=== PATIENT | female | born 1940 | race Caucasian/White ===

== ENCOUNTER 2017-11-11 14:06 | Emergency (ER) | payer OTHER ==
[2017-11-11 14:13] VITALS: TEMP 97.6; BMI 25.4
--- NOTE | 2017-11-11 15:23 | PDOC ---
History of Present Illness - General Chief Complaint: Ear Problem Stated Complaint: EAR PAIN Time Seen by Provider: 11/11/17 14:09 History Source: Patient, Spouse Exam Limitations: No Limitations - History of Present Illness Initial Comments: 11/11/17 15:40 77 year old female with PMH HTN, TIA, GERD presented to urgent care for left ear pain, was transferred to main ED for fluid behind TM. Pt states that she was diagnosed with left ear infection 12/[address] Vegas, was prescribed Amoxicillin, has taken all doses, but today in roman catholic she felt the music was louder in her left ear and her ear began to hurt again. She denies fever, chills , nausea, vomiting, diarrhea, abdominal pain, chest pain, tinnitus, numbness, tingling, weakness. She states she feels epigastric burning consistent with her GERD, and would like something for the burning. Allergies - NKDA PCP - [facility] Past History - Past Medical History Allergies/Adverse Reactions: Allergies Allergy/AdvReac Type Severity Reaction Status Date / Time No Known Allergies Allergy Verified 11/11/17 14:13 Home Medications: Ambulatory Orders Cefuroxime Axetil [Ceftin -] 500 mg PO Q12H #20 tablet 11/11/17 Ranitidine [Zantac -] 150 mg PO DAILY #14 tablet 11/11/17 CVA: No COPD: No CHF: No HTN: Yes - Suicide/Smoking/Psychosocial Hx Smoking History: Never smoked Have you smoked in the past 12 months: No Information on smoking cessation initiated: No Hx Alcohol Use: No Drug/Substance Use Hx: No Substance Use Type: None Review of Systems - Review of Systems Able to Perform ROS?: Yes Comments:: 11/11/17 15:43 General: denies fever, chills, night sweats, generalized weakness. HEENT: admits to left ear pain, noise sensitivity to left ear. denies sore throat, rhinorrhea. Heart: denies chest pain, palpitations, syncope, lower extremity swelling, diaphoresis. Respiratory: denies shortness of breath, cough, sputum production, hemoptysis. Abdomen: admits to epigastric burning. denies abdominal pain, nausea, vomiting, diarrhea, constipation, blood in stool. : denies dysuria, increased urinary frequency, hematuria, urinary incontinence , flank pain. Back: denies back pain. Musculoskeletal: denies joint pain, muscle pain, joint swelling. Neurological: denies headache, dizziness, numbness, tingling, weakness. Skin: denies rash, laceration, abrasion. *Physical Exam - Vital Signs Last Vital Signs Temp Pulse Resp BP Pulse Ox 97.6 F 67 17 129/72 100 11/11/17 14:10 11/11/17 14:10 11/11/17 14:10 11/11/17 14:10 11/11/17 14:10 - Physical Exam Comments: 11/11/17 15:44 Constitutional: Well-nourished, Well-developed, appearing stated age. HEENT: head is normocephalic, atraumatic. EOMI. PERRLA. external auditory canals patent bilaterally, no erythema bilaterally. no pain with pulling of pinna bilaterally. no mastoid tenderness. Purulent fluid noted behind the left TM. right TM sclerotic, but no fluid, no bulging, no erythema. no posterior pharyngeal erythema. no tonsillar swelling bilaterally. no tonsillar exudates bilaterally. Neck: supple. Full ROM. Heart: regular rhythm. no murmurs, rubs or gallops. Lungs: clear to auscultation bilaterally. no crackles, rhonchi or wheezing. no stridor. Abdomen: soft, nontender. normal bowel sounds. no rebound, guarding, masses. Extremities: Peripheral pulses intact. No lower extremity edema. Neurological: CN 2-12 grossly intact. Moves all four extremities. Psych: awake, alert, oriented x3. Follows commands. Answers questions appropriately. Medical Decision Making - Medical Decision Making 11/11/17 15:47 77 year old female with PMH HTN, TIA, GERD recently prescribed Amoxicillin () for left middle ear infection, purulent fluid behind left TM on examination. Pt failed out-patient antibiotics. PCP [facility]. Initial Vital Signs Temp Pulse Resp BP Pulse Ox 97.6 F 67 17 129/72 100 11/11/17 14:10 11/11/17 14:10 11/11/17 14:10 11/11/17 14:10 11/11/17 14:10 Afebrile. No tachycardia. No hypotension. No hypoxia on room air. Concern for failed out-patient antibiotics. - Augmentin ordered. Pt complains of epigastric burning consistent with her GERD symptoms, nontender/ soft abdomen. - Pepcid ordered 11/11/17 16:10 Dr. Hamilton spoke with Dr. Vegas about the patient, he requests the patient to be placed on Ceftin. Pt will be discharged with follow up instructions, referral for GI and ENT, prescription for Zantac and Ceftin, as well as strict return precautions. The patient and her stated they understood the plan for care and agreed to be discharged. *DC/Admit/Observation/Transfer Diagnosis at time of Disposition: Otitis media - Discharge Dispostion Disposition: HOME Condition at time of disposition: Stable Decision to Admit order: No - Prescriptions Prescriptions: Cefuroxime Axetil [Ceftin -] 500 mg PO Q12H #20 tablet Ranitidine [Zantac -] 150 mg PO DAILY #14 tablet - Referrals Referrals: Tianna Vegas MD [Primary Care Provider] - Nilson Connolly MD [Staff Physician] - Carmine Oconnell MD [Staff Physician] - - Patient Instructions Printed Discharge Instructions: Middle Ear Infection Additional Instructions: DOCTOR'S INSTRUCTIONS: You were seen today for left ear pain and increased sensitivity to hearing. You likely have a middle ear infection that was non-responsive to the first type of antibiotic. I gave you the first dose of a stronger antibiotic here in the Emergency Department. I have written a prescription for an antibiotic and sent it to your pharmacy. -Pick it up today and take as directed on the bottle. -This antibiotic can cause diarrhea, please take a pro-biotic every day over the counter to help with this. Drink lots of clear fluids, like water or gatorade, to stay hydrated. Take tylenol over the counter for pain. Take as directed on the package. I have written you a 2 week prescription for Zantac, to aid with your acid reflux. Pick it up today and take as directed on the bottle. Follow up with your primary care doctor within 5 days, call their office tomorrow and make an appointment for this coming week. Your care is not complete until you follow up. Tell Dr. eVgas about your acid reflux symptoms. I have provided you with a referral for an [id number] Doctor, Dr. Connolly. Follow up with him within 3 days. Call his office tomorrow and make an appointment for this week. Tell him you were seen in the Emergency Department. Your care is not complete until you follow up. I have provided you with a referral for a in store representative, Dr. Oconnell. Follow up with him within 5 days. Call his office tomorrow and make an appointment for this week. Tell him you were seen in the Emergency Department. Your care is not complete until you follow up. Return to the Emergency Department for fever, chills, body ache, chest pain, shortness of breath, vomiting, increasing pain, discharge from ear, pain behind your ear, or any other new, worsening or concerning symptoms. - Post Discharge Activity
[2017-11-11] MEDS ORDERED: AMOX TR/POT CLAV 875MG/125MG TABLETS (FP) PO ONE (15:49)
[2017-11-11] MEDS ORDERED: AMOX TR/POT CLAV 875MG/125MG TABLETS (FP) ONE (15:54)
--- NOTE | 2017-11-11 16:10 | PDOC ---
Attending Attestation - Resident Resident Name: Lyssa Tidwell - ED Attending Attestation I have performed the following: I have examined & evaluated the patient, The case was reviewed & discussed with the resident, I agree w/resident's findings & plan, Exceptions are as noted - Medical Decision Making 11/11/17 16:08 a/p: 77yo female with L ear pain -currently on amox 500mg po bid - seen by dr. dubois -ear fullness today -no mastoid ttp -no fevers -no lymph nodes -pt is nontoxic in appearance -no rash within the ear or vesicles within the ear -neuro intact -will change abx and recommend ent eval 11/11/17 16:09 pt also c/o acid reflux - requesting medication refill for acid reflux meds discussed the case with Dr. Dubois - pts pmd -will change to ceftin 500mg po bid -will add zantac -will give Dr. Connolly for follow up -stable for d/c to home <Johanna Hamilton - Last Filed: 11/11/17 16:08> - HPI HPI: 11/11/17 16:17 The patient is a 77 year old female with a significant past medical history of HTN, TIA, and GERD who presents to the ER with left ear pain since 12/03. Dr. Dubios prescribed the patient amoxicillin for a left ear infection, which she has taken regularly and noticed mild improvement until today. Patient then noticed fullness to the left ear earlier today prompting her to come to the ER. Patient also admits to epigastric burning, which feels like her GERD. The patient denies chest pain, shortness of breath, headache, and dizziness. Denies fever, chills, nausea, vomit, diarrhea, and constipation. Denies dysuria, frequency, urgency, and hematuria. Allergies: NKA Past surgical history: None reported. Social history: No reported alcohol, drug, or cigarette use. PCP: Dr. Dubois - Physicial Exam PE: 11/11/17 16:16 ADULT PHYSICAL EXAM Constitutional: Awake, alert, oriented. No acute distress. Head: Normocephalic. Atraumatic Eyes: PERRL. EOMI. Conjunctivae are not pale. ENT: Mucous membranes are moist and intact. Posterior pharynx without exudates or erythema. Uvula midline. (+) Some fluid behind the left ear. No sinus tenderness. Neck: Supple. Full ROM. No lymphadenopathy. Cardiovascular: Regular rate. Regular rhythm. S1, S2 regular. Distal pulses are 2+ and symmetric. Pulmonary/Chest: No evidence of respiratory distress. Clear to auscultation bilaterally No wheezing, rales or rhonchi. Abdominal: Soft and non-distended. There is no tenderness. No rebound, guarding or rigidity. No organomegaly. No palpable masses. Good bowel sounds. Back: No CVA tenderness. Musculoskeletal: No edema. No cyanosis. No clubbing. Full range of motion in all extremities. Nocalf tenderness. Radial/pedal pulses are intact and 2+ bilaterally Skin: Skin is warm and dry. No petechiae. No purpura. Neurological: Alert and oriented to person, place, and time. Cranial nerves II -XII are grossly intact. Normal speech. Strength is grossly symmetric. No sensory deficits. Psychiatric: Good eye contact. Normal interaction, affect and behavior. <Yvonne Dobbins - Last Filed: 11/11/17 16:21>
[2017-11-11 16:43] VITALS: BP 165/82; PULSE 64
== END 2017-11-11 16:20 | disposition home or self-care (01) ==
LOC: JER 14:06
DX: H66.92 Otitis media, unspecified, left ear (principal); I10 Essential (primary) hypertension; K21.9 Gastro-esophageal reflux disease without esophagitis; Z86.73 Personal history of transient ischemic attack (TIA), and cerebral infarction without residual deficits
CPT/HCPCS: 99281-25

== ENCOUNTER 2018-01-19 18:27 | Emergency (ER) | payer OTHER ==
[2018-01-19 18:38] VITALS: BP 173/71; PULSE 65; TEMP 98; BMI 25.7
--- NOTE | 2018-01-19 18:51 | PDOC ---
History of Present Illness - General Chief Complaint: Eye Problem Stated Complaint: RED EYE Time Seen by Provider: 01/19/18 18:42 History Source: Patient Exam Limitations: No Limitations - History of Present Illness Initial Comments: 01/19/18 19:03 Patient is a 77-year-old female who presents to the emergency department today for right eye redness. Patient states that she noticed approximately one week ago the inside of her right eye became very red. She denies any pain to the eye or itching. Also denies pressure of the right eye. Denies fevers, chills, cold- like symptoms, cough. Patient states that she been taking medication for her seasonal ALLERGIES. Past History - Travel Traveled outside of the country in the last 30 days: No Close contact w/someone who was outside of country & ill: No - Past Medical History Allergies/Adverse Reactions: Allergies Allergy/AdvReac Type Severity Reaction Status Date / Time No Known Allergies Allergy Verified 01/19/18 18:33 Home Medications: Ambulatory Orders Amlodipine Besylate 5 mg PO ASDIR 01/19/18 CVA: No COPD: No CHF: No HTN: Yes - Suicide/Smoking/Psychosocial Hx Smoking History: Never smoked Have you smoked in the past 12 months: No Hx Alcohol Use: No Drug/Substance Use Hx: No Substance Use Type: None Review of Systems - Review of Systems Able to Perform ROS?: Yes Comments:: 01/19/18 19:01 CONSTITUTIONAL: Absent: fever, chills, diaphoresis, generalized weakness, malaise, loss of appetite HEENT: Present: eye redness Absent: rhinorrhea, nasal congestion, throat pain, throat swelling, difficulty swallowing, mouth swelling, ear pain, eye pain, visual Changes SKIN: Absent: rash, itching, pallor NEUROLOGIC: Absent: headache, focal weakness or paresthesias, dizziness, unsteady gait, seizure, mental status changes, bladder or bowel incontinence PSYCHIATRIC: Absent: anxiety, depression, suicidal or homicidal ideation, hallucinations. Is the patient limited Kazakh proficient: No *Physical Exam - Vital Signs Last Vital Signs Temp Pulse Resp BP Pulse Ox 98 F 65 16 173/71 H 95 01/19/18 18:33 12 18:33 01/19/18 18:33 01/19/18 18:33 01/19/18 18:33 - Physical Exam Comments: 01/19/18 19:01 GENERAL: The patient is awake, alert, and fully oriented, in no acute distress. HEAD: Normal with no signs of trauma. EYES: Pupils equal, round and reactive to light, extraocular movements intact, sclera anicteric, conjunctiva clear in the L eye. Conjunctiva of the R eye is red medially and does not affect the iris. EXTREMITIES: Normal range of motion, no edema. NEUROLOGICAL: Normal speech, normal gait. PSYCH: Normal mood, normal affect. SKIN: Warm, Dry, normal turgor, no rashes or lesions noted. Moderate Sedation - Procedure Monitoring Vital Signs: Procedure Monitoring Vital Signs Temperature 98 F 01/19/18 18:33 Pulse Rate 65 01/19/18 18:33 Respiratory Rate 16 01/19/18 18:33 Blood Pressure 173/71 H 01/19/18 18:33 O2 Sat by Pulse Oximetry (%) 95 01/19/18 18:33 Medical Decision Making - Medical Decision Making 01/19/18 18:51 Pt is a 77 y/o F who presents for R eye redness for one week Pt denies pain or itching or pressure Visual acuity: OD20/50, OS20/40 Erythema to the medial aspect of the R conjunctiva sparing the iris Most likely a subconjunctival hemorrhage DC home with optho followup I discussed the physical exam findings, ancillary test results and final diagnoses with the patient. I answered all of the patient's questions. The patient was satisfied with the care received and felt comfortable with the discharge plan and treatment plan. The Patient agrees to follow up with the primary care physician/specialist within 24-72 hours. Return precautions were given. *DC/Admit/Observation/Transfer Diagnosis at time of Disposition: Subconjunctival hemorrhage Qualifiers: Laterality: right Qualified Code(s): H11.31 - Conjunctival hemorrhage, right eye - Discharge Dispostion Disposition: HOME Condition at time of disposition: Stable Decision to Admit order: No - Referrals Referrals: Tianna Vegas MD [Primary Care Provider] - Gray Edmonds MD [Staff Physician] - - Patient Instructions Printed Discharge Instructions: DI for Subconjunctival Hemorrhage Additional Instructions: You have a subconjunctival hemorrhage causing the redness to your right eye. This happens when a small blood vessel in the eye breaks and bleeds for a small amount time. This will get better on its own without treatment. Please follow-up with your sanitation truck cleaner this week. Return to the emergency department for pain, visual changes, lightheadedness dizziness or give any changes in your symptoms. - Post Discharge Activity
== END 2018-01-19 19:24 | disposition home or self-care (01) ==
LOC: JERFT 18:27
DX: H11.31 Conjunctival hemorrhage, right eye (principal); I10 Essential (primary) hypertension
CPT/HCPCS: 99281-25

== ENCOUNTER 2019-01-04 18:57 | Emergency (ER) | payer OTHER ==
[2019-01-04 19:10] VITALS: TEMP 97.6; BMI 26.0
--- NOTE | 2019-01-04 20:31 | PDOC ---
History of Present Illness - General Chief Complaint: Lightheaded Stated Complaint: DIZZINESS Time Seen by Provider: 01/04/19 19:44 - History of Present Illness Initial Comments: 01/04/19 20:26 Ms. Neumann is a 78 y/o F with a pmhx HTN, TIA, and GERD who presents with dizziness since Sunday. The pt reprots when she lays flat in bed she feels dizzy and like the room is spinning around her. She states it lasts for a few seconds and then goes away. She still feels dizzy even if she closes her eyes. She also endorses a "head pressure" and "ear pressure" in her L ear. She does not endorse any nausea, vomiting, abdominal pain, diarrhea, constipation, fevers , chills, cp or SOB. The patient states she had an ear infection 1 year ago and is concerned her current sx might be a recurrence of her ear infection. Past History - Past Medical History Allergies/Adverse Reactions: Allergies Allergy/AdvReac Type Severity Reaction Status Date / Time No Known Allergies Allergy Verified 01/04/19 19:10 Home Medications: Ambulatory Orders Amlodipine Besylate 5 mg PO ASDIR 01/19/18 CVA: No COPD: No CHF: No HTN: Yes - Psycho Social/Smoking Cessation Hx Smoking History: Never smoked Have you smoked in the past 12 months: No Hx Alcohol Use: No Drug/Substance Use Hx: No Substance Use Type: None Review of Systems - Review of Systems Able to Perform ROS?: Yes Is the patient limited Vincentian proficient: No Constitutional: No: Chills, Fever, Loss of Appetite HEENTM: No: Symptoms Reported, Eye Pain, Recent change in vision, Throat Pain Respiratory: No: Cough, Orthopnea, Shortness of Breath Cardiac (ROS): No: Chest Pain, Edema, Palpitations, Syncope ABD/GI: No: Constipated, Diarrhea, Nausea, Vomiting : No: Burning, Dysuria, Frequency Musculoskeletal: No: Back Pain Integumentary: No: Bruising, Erythema Neurological: Yes: Dizziness, Other (head pressure). No: Headache Endocrine: No: Flushing, Intolerance to Cold, Intolerance to Heat All Other Systems: Reviewed and Negative *Physical Exam - Vital Signs Last Vital Signs Temp Pulse Resp BP Pulse Ox 97.6 F 65 18 186/63 H 98 01/04/19 19:07 11/30/19 19:45 01/04/19 19:45 01/04/19 19:45 01/04/19 19:45 - Physical Exam General Appearance: Yes: Nourished, Appropriately Dressed. No: Apparent Distress HEENT: positive: EOMI, GIBRAN, Normal Voice, TMs Normal, Pharynx Normal, Tonsillar Exudate, Other (horizontal nystagmus) Neck: positive: Trachea midline, Supple. negative: Tender Respiratory/Chest: positive: Lungs Clear, Normal Breath Sounds. negative: Respiratory Distress, Accessory Muscle Use Cardiovascular: positive: Regular Rhythm, Regular Rate, S1, S2 Gastrointestinal/Abdominal: positive: Normal Bowel Sounds, Flat. negative: Tender Musculoskeletal: positive: Normal Inspection. negative: CVA Tenderness, Vertebral Tenderness Extremity: positive: Normal Capillary Refill, Normal Inspection, Normal Range of Motion. negative: Tender Integumentary: positive: Normal Color, Dry, Warm Neurologic: positive: digital learning platforms manager II-XII NML intact, Fully Oriented, Alert, Normal Mood/ Affect, Normal Response, Motor Strength 06/09 ED Treatment Course - LABORATORY CBC & Chemistry Diagram: 01/04/19 21:21 Medical Decision Making - Medical Decision Making 01/04/19 20:39 Ms. Neumann is a 78 y/o F with a pmhx HTN, TIA, and GERD who presents with dizziness since Sunday. The pt reprots when she lays flat in bed she feels dizzy and like the room is spinning around her. Sx most likely caused by BPPV given the brevity of the episodes (<1) which are provoked by laying flat and accompanied by horizontal nystagmus. Will also r/o any intracranial pathology with head CT and obtain troponin and EKG given the pts elevated BP Will obtain: - CBC - CMP - CT head without contrast - Troponin - EKG Will trial pt on meclizine to see if sx improve. 01/04/19 23:56 - CMP unremarkable, pt dizziness completely resolved with meclizine, still awaiting results of CBC and head CT, patient likely to be discharged home pending results. Discharge - Discharge Information Problems reviewed: Yes Clinical Impression/Diagnosis: Dizziness Condition: Improved - Admission No - Follow up/Referral Referrals: Tianna Vegas MD [Primary Care Provider] - 1 week - Patient Discharge Instructions Patient Printed Discharge Instructions: DI for Benign Paroxysmal Positional Vertigo Additional Instructions: You were in the hospital because you had several episodes of dizziness when laying down. While here we did a physical exam and looked in your ears to make sure you were not having a recurrence of your previous ear infection. We also did some lab work and sent you for a head CT. Your labs and head CT were both normal. The most likely cause of your symptoms is benign paroxysmal positional vertigo. We gave you a medicine called Meclizine which is used to treat vertigo and this completely resolved your symptoms. Please follow up with your doctor within 1 week. If you have worsening symptoms or begin to experience worsening headaches, weakness, numbness, tingling or other neurologic problems, please return to the emergency department immediately. - Post Discharge Activity
[2019-01-04] MEDS ORDERED: MECLIZINE HCL 25 MG TABLET (FP) PO ONE (20:32)
--- NOTE | 2019-01-04 21:09 | PDOC ---
Attending Attestation - Resident Resident Name: SimoneRicarda - ED Attending Attestation I have performed the following: I have examined & evaluated the patient, The case was reviewed & discussed with the resident, I agree w/resident's findings & plan, Exceptions are as noted - HPI HPI: 01/04/19 21:03 78 F with h/o HTN, TIA, GERD, presenting to ED with positional dizziness x 3 days. Pt states that when she lies flat, she experiences room-spinning dizziness. Pt denies any symptoms when she sits or stands up. Denies any unsteadiness when she walks. Pt states that she has also been having pain and pressure in her L ear for 3 days. Denies F/C. Denies N/V. Denies CP/SOB. Denies any weakness/numbness in any extremity. Denies slurred speech or facial droop. - Physicial Exam PE: 01/04/19 21:07 "GENERAL: Awake, alert, and fully oriented, in no acute distress. HEAD: No signs of trauma EYES: PERRLA, EOMI, sclera anicteric, conjunctiva clear ENT: + L TM erythematous, Auricles normal inspection, hearing grossly normal, nares patent, oropharynx clear without exudates. Moist mucosa NECK: Nontender, no stepoffs, Normal ROM, supple, no lymphadenopathy, JVD, or masses LUNGS: Breath sounds equal, clear to auscultation bilaterally. No wheezes, and no crackles HEART: Regular rate and rhythm, normal S1 and S2, no murmurs, rubs or gallops ABDOMEN: Soft, nontender, normoactive bowel sounds. No guarding, no rebound. No masses EXTREMITIES: Normal range of motion, no edema. No clubbing or cyanosis. No cords, erythema, or tenderness NEUROLOGICAL: Cranial nerves II through XII intact. 5/5 strength and sensation in all extremities, Normal speech, normal gait, normal cerebellar function SKIN: Warm, Dry, normal turgor, no rashes or lesions noted. - Medical Decision Making 01/04/19 21:07 78 F with positional room-spinning dizziness and L ear pain. Suspect peripheral vertigo 2/2 otitis media. Low suspicion for CVA as pt without any neuro deficits on my exam. However, given age and risk factors, will obtain head CT. - Labs - CT head - meclizine - Abx 01/05/19 01:[address] head negative Pt reassessed - vertigo now resolved after meclizine WIll DC with amoxicillin for otitis media. Pt instructed to f/u with PMD for BP control. Pt is well appearing, with normal vitals. Clinically stable for DC at this time. I discussed the physical exam findings, ancillary test results and final diagnoses with the patient. I answered all of the patient's questions. The patient was satisfied with the care received and felt comfortable with the discharge plan and treatment plan. The patient agrees to follow up with the primary care physician within 24-72 hours.
[2019-01-04] MEDS ORDERED: MECLIZINE HCL 12.5 MG TABLET ONE (21:16)
[2019-01-04 22:20] LABS: ALBUMIN 3.7 g/dl (3.4-5.0); ALK PHOS 122 U/L (45-117); ANION GAP 7 MMOL/L (8-16); BILIRUBIN,TOTAL 0.2 mg/dL (0.2-1); BLOOD UREA NITROGEN 12.5 mg/dL (7-18); CALCIUM 9.5 mg/dL (8.5-10.1); CHLORIDE 104 mmol/L (98-107); CO2 30 mmol/L (21-32); CREATININE 0.6 mg/dL (0.55-1.3); GLUCOSE,RANDOM 105 mg/dL (74-106); POTASSIUM 4.1 mmol/L (3.5-5.1); SGOT/AST 19 U/L (15-37); SGPT/ALT 24 U/L (13-61); SODIUM 140 mmol/L (136-145); TOT PROT 7.6 g/dl (6.4-8.2)
--- NOTE | 2019-01-05 00:39 | PDOC ---
ED Treatment Course - LABORATORY CBC & Chemistry Diagram: 01/05/19 01:01 01/04/19 21:21 Medical Decision Making - Medical Decision Making Pt signed out to me by Dr. Nichols, see prior note. 78 year old female with PMH HTN, TIA, GERD presented to ED for room-spinning sensation since Sunday. She reported the dizziness occurred with head movement while laying in bed. She also complained of left sided ear pressure similar to a prior ear infection x1 year ago. Examination by prior provider revealed reproducible vertigo and bilateral nystagmus with [place], as well as a left sided otitis media. Initial Vital Signs Temp Pulse Resp BP Pulse Ox 97.6 F 76 18 177/127 H 96 01/04/19 19:07 01/04/19 19:07 01/04/19 19:07 01/04/19 19:07 01/04/19 19:07 Afebrile. No tachycardia. No tachypnea. Hypertensive. No hypoxia on room air. Laboratory Last Values Sodium 140 mmol/L (136-145) 01/04/19 21:21 Potassium 4.1 mmol/L (3.5-5.1) 01/04/19 21:21 Chloride 104 mmol/L (98-107) 01/04/19 21:21 Carbon Dioxide 30 mmol/L (21-32) 01/04/19 21:21 Anion Gap 7 MMOL/L (8-16) L 01/04/19 21:21 BUN 12.5 mg/dL (7-18) 01/04/19 21:21 Creatinine 0.6 mg/dL (0.55-1.3) 01/04/19 21:21 Est GFR (CKD-EPI)AfAm 101.18 01/04/19 21:21 Est GFR (CKD-EPI)NonAf 87.30 01/04/19 21:21 Random Glucose 105 mg/dL (74-106) 01/04/19 21:21 Calcium 9.5 mg/dL (8.5-10.1) 01/04/19 21:21 Total Bilirubin 0.2 mg/dL (0.2-1) 01/04/19 21:21 AST 19 U/L (15-37) 01/04/19 21:21 ALT 24 U/L (13-61) 01/04/19 21:21 Alkaline Phosphatase 122 U/L (45-117) H 01/04/19 21:21 Troponin I < 0.02 ng/ml (0.00-0.05) 01/04/19 21:21 Total Protein 7.6 g/dl (6.4-8.2) 01/04/19 21:21 Albumin 3.7 g/dl (3.4-5.0) 01/04/19 21:21 Lab reported lost CBC, now found. Pending CBC results and CT head results. ED Medications Discontinued Medications Generic Name Dose Route Start Last Admin Trade Name Jet PRN Reason Stop Dose Admin Meclizine HCl 25 mg 01/04/19 20:32 01/04/19 21:19 Antivert - PO 01/04/19 20:33 25 mg ONCE ONE Administration Pt was given Meclizine with improvement of symptoms. 01/05/19 00:51 CT report: Referring Physician: SANDRA KEEN Patient Name: TRIXIE ESCAMILLA THIS IS A PRELIMINARY REPORT FROM [facility] DATE OF SERVICE: 2019-01-04 22:49:37 IMAGES: 239 EXAM: HEAD CT WITHOUT CONTRAST HISTORY: Hypertension. TIA. Spinning sensation. COMPARISON: None. FINDINGS No acute intracranial abnormality. No hemorrhage. No visible infarct or mass. Osseous structures are intact. One or more of the following dose reduction techniques were used: automated exposure control, adjustment of the mA and/or kV according to patient size, use of iterative reconstructive technique. THIS DOCUMENT HAS BEEN ELECTRONICALLY SIGNED Juventino Britt MD 01/05/2019 00:44 EST M.D. Please call Imaging Urologic Surgeon [phone] ([phone]) with questions. Juventino Britt MD Clinicians - Please contact Imaging Urologic Surgeon with further questions at [phone]) Patients - Please contact your Ordering Provider with questions. 01/05/19 00:58 Lab reported they lost CBC a second time. Third CBC ordered. 01/05/19 01:39 CBC WBC 9.2 K/mm3 (4.0-10.0) 01/05/19 01:01 RBC 4.53 M/mm3 (3.60-5.2) 01/05/19 01:01 Hgb 13.2 GM/dL (10.7-15.3) 01/05/19 01:01 Hct 39.8 % (32.4-45.2) 01/05/19 01:01 MCV 87.8 fl (80-96) 01/05/19 01:01 MCH 29.1 pg (25.7-33.7) 01/05/19 01:01 MCHC 33.1 g/dl (32.0-36.0) 01/05/19 01:01 RDW 14.3 % (11.6-15.6) 01/05/19 01:01 Plt Count 291 K/MM3 (134-434) 01/05/19 01:01 MPV 7.3 fl (7.5-11.1) L 01/05/19 01:01 Absolute Neuts (auto) 4.9 K/mm3 (1.5-8.0) 01/05/19 01:01 Neutrophils % 53.3 % (42.8-82.8) 01/05/19 01:01 Lymphocytes % 37.2 % (8-40) 01/05/19 01:01 Monocytes % 6.9 % (3.8-10.2) 01/05/19 01:01 Eosinophils % 2.0 % (0-4.5) 01/05/19 01:01 Basophils % 0.6 % (0-2.0) 01/05/19 01:01 Nucleated RBC % 0 % (0-0) 01/05/19 01:01 No leukocytosis. No anemia. 01/05/19 02:00 Vital Signs Temperature 97.6 F 01/04/19 19:07 Pulse Rate 66 01/05/19 01:59 Respiratory Rate 18 01/05/19 01:59 Blood Pressure 143/65 01/05/19 01:59 O2 Sat by Pulse Oximetry (%) 98 01/05/19 01:59 HTN improved. Pt informed of results. Pt advised to F/U with PCP, she agreed with plan for care. Pt discharged. Discharge - Discharge Information Problems reviewed: Yes Clinical Impression/Diagnosis: Dizziness, Otitis media Condition: Improved Disposition: HOME - Admission No - Additional Discharge Information Prescriptions: Amoxicillin - [Amoxicillin 500mg Capsule -] 500 mg PO TID #14 capsule Meclizine HCl [Antivert -] 25 mg PO TID #21 tablet - Follow up/Referral Referrals: Tianna Vegas MD [Primary Care Provider] - 1 week - Patient Discharge Instructions Patient Printed Discharge Instructions: DI for Benign Paroxysmal Positional Vertigo Additional Instructions: You were in the hospital because you had several episodes of dizziness when laying down. You have an ear infection. We also did some lab work and sent you for a head CT. Your labs and head CT were both normal. The most likely cause of your symptoms is from your ear infection. Please follow up with your doctor within 3 days. If you have worsening symptoms or begin to experience worsening headaches, weakness, numbness, tingling or other neurologic problems, please return to the emergency department immediately. I have sent a prescription for an antibiotic to your pharmacy. Pick it up and take as advised on label. Do not stop early even if you are feeling better. I have sent a prescription to your pharmacy for Meclizine, it is an anti- dizziness medication, use as needed up to twice a day for room-spinning sensation. Take Tylenol over the counter for pain. Take as advised on label. Your blood pressure was high. Take your blood pressure twice a day at the same time every day and keep a log of your pressures. Bring this log to your primary care doctor so they can evaluate if your medications need to be changed. - Post Discharge Activity
[2019-01-05] MEDS ORDERED: AMOXICILLIN 500 MG CAPSULE (FP) PO ONE (01:02)
[2019-01-05 01:14] LABS: BASO % 0.6 % (0-2.0); HEMATOCRIT 39.8 % (32.4-45.2); HEMOGLOBIN 13.2 GM/dL (10.7-15.3); LYMPH % 37.2 % (8-40); MCH 29.1 pg (25.7-33.7); MCHC 33.1 g/dl (32.0-36.0); MEAN CELL VOLUME 87.8 fl (80-96); MEAN PLT VOLUME 7.3 fl (7.5-11.1); MONO % 6.9 % (3.8-10.2); NEUT % 53.3 % (42.8-82.8); PLATELET COUNT 291 K/MM3 (134-434); RBC 4.53 M/mm3 (3.60-5.2); RDW 14.3 % (11.6-15.6); WHITE BLOOD COUNT 9.2 K/mm3 (4.0-10.0)
[2019-01-05] MEDS ORDERED: AMOXICILLIN 500 MG CAPSULE (FP) ONE (01:27)
[2019-01-05 01:59] VITALS: BP 143/65; PULSE 66
--- NOTE | 2019-01-06 10:42 | EKG ---
Test Reason : Blood Pressure : / mmHG Vent. Rate : 064 BPM Atrial Rate : 064 BPM P-R Int : 136 ms QRS Dur : 114 ms QT Int : 454 ms P-R-T Axes : 064 002 037 degrees QTc Int : 468 ms NORMAL SINUS RHYTHM POSSIBLE LEFT ATRIAL ENLARGEMENT RIGHT BUNDLE BRANCH BLOCK ABNORMAL ECG NO PREVIOUS ECGS AVAILABLE Confirmed by DWIGHT WAGNER, JIMMY ([id number]) on 01/06/2019 10:42:14 AM Referred By: Confirmed By:JIMMY QUINTANILLA MD
== END 2019-01-05 02:28 | disposition home or self-care (01) ==
LOC: JER 18:57
DX: H66.92 Otitis media, unspecified, left ear (principal); R42 Dizziness and giddiness; I10 Essential (primary) hypertension; K21.9 Gastro-esophageal reflux disease without esophagitis; Z86.73 Personal history of transient ischemic attack (TIA), and cerebral infarction without residual deficits
CPT/HCPCS: 36415; 70450-TC; 80053; 84484; 85025; 93005; 93010; 99283-25

== ENCOUNTER 2020-04-07 16:50 | Emergency (ER) | payer OTHER ==
[2020-04-07 17:16] VITALS: TEMP 98.7; BMI 25.7
[2020-04-07 18:23] LABS: BASO % 2.1 % (0-2.0); HEMATOCRIT 41.1 % (32.4-45.2); HEMOGLOBIN 13.8 GM/dl (10.7-15.3); LYMPH % 29.1 % (8-40); MCH 29.8 pg (25.7-33.7); MCHC 33.6 g/dl (32.0-36.0); MEAN CELL VOLUME 88.6 fl (80-96); MEAN PLT VOLUME 8.3 fl (7.5-11.1); MONO % 6.6 % (3.8-10.2); NEUT % 61.2 % (42.8-82.8); PLATELET COUNT 266 K/MM3 (134-434); RBC 4.64 M/mm3 (3.60-5.2); RDW 13.3 % (11.6-15.6); WHITE BLOOD COUNT 9.4 K/mm3 (4.0-10.8)
[2020-04-07 18:30] LABS: ALBUMIN 3.9 g/dl (3.4-5.0); BILIRUBIN,TOTAL 1.4 mg/dl (0.2-1); CALCIUM 9.1 mg/dl (8.5-10); CREATININE 0.7 mg/dl (0.55-1.3); TOT PROT 7.1 g/dl (6.4-8.2)
[2020-04-07 18:33] LABS: ACTIVATED PTT 31.6 SECONDS (25.2-36.5); POTASSIUM 5.3 mmol/L (3.5-5.1)
[2020-04-07 18:38] LABS: INR 1.13 (0.82-1.09); PROTHROMBIN TIME (PATIENT) 12.6 SEC (10.2-13.0)
[2020-04-07] MEDS ORDERED: hydrALAZINE HCL 25 MG TABLET (FP) PO ONE (18:42)
[2020-04-07] MEDS ORDERED: LISINOPRIL 10 MG TABLET PO ONE (18:42)
[2020-04-07] MEDS ORDERED: LISINOPRIL 5 MG TABLET ONE (18:50)
[2020-04-07] MEDS ORDERED: hydrALAZINE HCL 25 MG TABLET (FP) ONE (18:50)
[2020-04-07 19:30] VITALS: PULSE 64
[2020-04-07 19:55] VITALS: BP 186/80
== END 2020-04-07 20:08 | disposition home or self-care (01) ==
LOC: FER 16:50
DX: I10 Essential (primary) hypertension (principal)
CPT/HCPCS: 36415; 70450-TC; 71046-TC-FY; 80053; 84484; 85025; 85610; 85730; 93005; 99285-25

== ENCOUNTER 2021-06-10 18:07 | Emergency (ER) | payer OTHER ==
[2021-06-10 18:37] VITALS: TEMP 98.2; BMI 25.7
[2021-06-10 19:23] LABS: BASO % 0.4 % (0-2.0); EOS % 1.5 % (0-4.5); HEMOGLOBIN 13.7 GM/dL (10.7-15.3); LYMPH % 44.6 % (8-40); MCH 29.9 pg (25.7-33.7); MCHC 33.3 g/dl (32.0-36.0); MEAN CELL VOLUME 89.6 fl (80-96); MEAN PLT VOLUME 7.4 fl (7.5-11.1); MONO % 8.2 % (3.8-10.2); NEUT % 45.3 % (42.8-82.8); PLATELET COUNT 276 10^3/uL (134-434); RBC 4.57 M/mm3 (3.60-5.2); WHITE BLOOD COUNT 8.8 K/mm3 (4.0-10.0)
[2021-06-10 19:44] LABS: ALBUMIN 4.1 g/dl (3.4-5.0); BLOOD UREA NITROGEN 15.5 mg/dL (7-18)
[2021-06-10 19:47] LABS: CREATININE 0.8 mg/dL (0.55-1.3)
[2021-06-10 19:49] LABS: BILIRUBIN,TOTAL 0.2 mg/dL (0.2-1)
[2021-06-10 19:52] LABS: N-TERMINAL BNP 76.7 pg/ml (5-450)
[2021-06-10 20:16] LABS: EPI CELLS 1 /uL (0-25.1); HYALINE CASTS 0 /uL (0-3.1); PH,URINE 7.5 (5.0-8.0); URINE APPEARANCE CLEAR; URINE BACTERIA 2 /uL (0-1359); URINE BILIRUBIN NEGATIVE (NEGATIVE); URINE COLOR YELLOW; URINE GLUCOSE (UA) NEGATIVE (NEGATIVE); URINE KETONE NEGATIVE (NEGATIVE); URINE LEUK ESTERASE NEGATIVE (NEGATIVE); URINE NITRITE NEGATIVE (NEGATIVE); URINE PROTEIN NEGATIVE (NEGATIVE); URINE RBC 23 /uL (0-23.9); URINE UROBILINOGEN 0.2 mg/dL (0.2-1.0); URINE WBC 2 /uL (0-25.8)
[2021-06-10] MEDS ORDERED: FUROSEMIDE 40 MG/4 ML INJECTABLE VIAL IVPUSH ONE (21:18)
[2021-06-10] MEDS ORDERED: FUROSEMIDE 40 MG/4 ML INJECTABLE VIAL ONE (21:34)
[2021-06-10 21:40] VITALS: BP 161/68; PULSE 65
== END 2021-06-10 23:26 | disposition home or self-care (01) ==
LOC: JER 18:07
PROC: 3E033GC Introduction of Other Therapeutic Substance into Peripheral Vein, Percutaneous Approach (ICD-10-PCS; principal; 2021-06-10)
DX: M79.89 Other specified soft tissue disorders (principal)
CPT/HCPCS: 36415; 71045-TC-FY; 80053; 81003; 83880; 84484; 85025; 87086; 93005; 93010; 99285-25

== ENCOUNTER 2021-09-06 19:20 | Emergency (ER) | payer OTHER ==
[2021-09-06 20:05] VITALS: TEMP 97.4; BMI 26.2
[2021-09-06] MEDS ORDERED: hydrALAZINE HCL 20 MG/ML VIAL IVPUSH ONE (21:28)
[2021-09-06] MEDS ORDERED: ACETAMINOPHEN 1000 MG/100 ML BAG IVPB ONE (21:28)
[2021-09-06 21:45] LABS: BASO % 0.3 % (0-2.0); EOS % 1.2 % (0-4.5); HEMATOCRIT 38.7 % (32.4-45.2); HEMOGLOBIN 12.8 GM/dL (10.7-15.3); LYMPH % 43.6 % (8-40); MCH 29.2 pg (25.7-33.7); MCHC 33.2 g/dl (32.0-36.0); MEAN CELL VOLUME 87.9 fl (80-96); MEAN PLT VOLUME 7.2 fl (7.5-11.1); MONO % 7.2 % (3.8-10.2); NEUT % 47.7 % (42.8-82.8); PLATELET COUNT 292 10^3/uL (134-434); RDW 13.9 % (11.6-15.6); WHITE BLOOD COUNT 10.7 K/mm3 (4.0-10.0)
[2021-09-06 21:46] LABS: EPI CELLS 0 /uL (0-25.1); HYALINE CASTS 0 /uL (0-3.1); URINE APPEARANCE CLEAR; URINE BACTERIA 15 /uL (0-1359); URINE BILIRUBIN NEGATIVE (NEGATIVE); URINE COLOR YELLOW; URINE GLUCOSE (UA) NEGATIVE (NEGATIVE); URINE KETONE NEGATIVE (NEGATIVE); URINE LEUK ESTERASE NEGATIVE (NEGATIVE); URINE NITRITE NEGATIVE (NEGATIVE); URINE PROTEIN NEGATIVE (NEGATIVE); URINE RBC 28 /uL (0-23.9); URINE UROBILINOGEN 0.2 mg/dL (0.2-1.0); URINE WBC 1 /uL (0-25.8)
[2021-09-06 22:04] LABS: ALBUMIN 3.8 g/dl (3.4-5.0); BLOOD UREA NITROGEN 9.6 mg/dL (7-18); CALCIUM 9.6 mg/dL (8.5-10.1)
[2021-09-06] MEDS ORDERED: hydrALAZINE HCL 20 MG/ML VIAL ONE (22:06)
[2021-09-06] MEDS ORDERED: ACETAMINOPHEN INJECTION 100 ML IVPB ONE (22:06)
[2021-09-06 22:08] LABS: CREATININE 0.6 mg/dL (0.55-1.3)
[2021-09-06 22:09] LABS: BILIRUBIN,TOTAL 0.2 mg/dL (0.2-1); TOT PROT 7.6 g/dl (6.4-8.2)
[2021-09-06 22:13] VITALS: RESP 16
[2021-09-07 01:15] VITALS: BP 150/79; PULSE 68
== END 2021-09-07 01:16 | disposition home or self-care (01) ==
LOC: JER 19:20
PROC: 3E0333Z Introduction of Anti-inflammatory into Peripheral Vein, Percutaneous Approach (ICD-10-PCS; principal; 2021-09-06)
PROC: 3E033GC Introduction of Other Therapeutic Substance into Peripheral Vein, Percutaneous Approach (ICD-10-PCS; 2021-09-06)
DX: I10 Essential (primary) hypertension (principal)
CPT/HCPCS: 0241U-QW; 36415; 70450-TC; 71045-TC-FY; 80053; 81003; 84484; 85025; 87086; 93005; 93010; 96374; 96375; 99285-25

== ENCOUNTER 2021-10-22 09:49 | Day surgery (SDC) | payer OTHER ==
[2021-10-22] MEDS ORDERED: ZOLEDRONIC ACID/MAN/WATER 5 MG/100 ML INFUS..BTL IVPB ONE (10:15)
[2021-10-22] MEDS ORDERED: ACETAMINOPHEN 325 MG TABLET (FP) PO ONE (10:30)
[2021-10-22 11:01] VITALS: BP 168/62; PULSE 58; RESP 16; TEMP 98.2
== END 2021-10-22 11:10 | disposition home or self-care (01) ==
LOC: FINFUSION 09:49 → FM/S 09:56 → FINFUSION 11:10
PROVIDERS: ATTEND Family Medicine
PROC: 3E033GC Introduction of Other Therapeutic Substance into Peripheral Vein, Percutaneous Approach (ICD-10-PCS; principal; 2021-10-22)
DX: M81.0 Age-related osteoporosis without current pathological fracture (principal)
CPT/HCPCS: 96365; J3489

== ENCOUNTER 2022-11-29 18:04 | Emergency (ER) | payer OTHER ==
[2022-11-29 18:14] VITALS: RESP 18; BMI 26.5
[2022-11-29 21:00] LABS: BASO % 0.3 % (0-2.0); EOS % 0.5 % (0-4.5); HEMATOCRIT 37.3 % (32.4-45.2); HEMOGLOBIN 12.4 GM/dL (10.7-15.3); LYMPH % 27.4 % (8-40); MCH 29.4 pg (25.7-33.7); MCHC 33.3 g/dl (32.0-36.0); MEAN CELL VOLUME 88.3 fl (80-96); MEAN PLT VOLUME 6.6 fl (7.5-11.1); MONO % 11.5 % (3.8-10.2); NEUT % 60.3 % (42.8-82.8); PLATELET COUNT 373 10^3/uL (134-434); RBC 4.23 M/mm3 (3.60-5.2); RDW 14.5 % (11.6-15.6); WHITE BLOOD COUNT 8.8 K/mm3 (4.0-10.0)
[2022-11-29 21:42] LABS: POTASSIUM 3.6 mmol/L (3.5-5.1)
[2022-11-29 21:45] LABS: CALCIUM 9.6 mg/dL (8.5-10.1)
[2022-11-29 21:46] LABS: ALBUMIN 3.6 g/dl (3.4-5.0); BLOOD UREA NITROGEN 10.5 mg/dL (7-18); MAGNESIUM 1.9 mg/dL (1.8-2.4)
[2022-11-29 21:50] LABS: BILIRUBIN,TOTAL 0.2 mg/dL (0.2-1); CREATININE 0.7 mg/dL (0.55-1.3); TOT PROT 7.7 g/dl (6.4-8.2)
[2022-11-29 22:04] LABS: N-TERMINAL BNP 122.7 pg/ml (5-450)
[2022-11-29] MEDS ORDERED: SODIUM CHLORIDE 0.9% 500 ML INFUS.BAG IV ONE (23:55)
[2022-11-30 00:04] VITALS: BP 170/69; PULSE 68; TEMP 97.5
[2022-11-30 01:55] LABS: BLOOD UREA NITROGEN 8.3 mg/dL (7-18); CALCIUM 8.5 mg/dL (8.5-10.1); CREATININE 0.5 mg/dL (0.55-1.3); POTASSIUM 3.6 mmol/L (3.5-5.1)
[2022-11-30] MEDS ORDERED: AZITHROMYCIN 500 MG TABLET ONE (02:02)
[2022-11-30] MEDS ORDERED: AZITHROMYCIN 500 MG TABLET PO ONE (02:02)
== END 2022-11-30 02:11 | disposition home or self-care (01) ==
LOC: JER 18:04
DX: R05.9 Cough, unspecified (principal); J34.89 Other specified disorders of nose and nasal sinuses; J40 Bronchitis, not specified as acute or chronic; Z20.822 Contact with and (suspected) exposure to COVID-19
CPT/HCPCS: 0241U-QW; 36415; 71046-TC-FY; 80048; 80053; 83735; 83880; 84484; 85025; 93005; 93010; 99285-25

== ENCOUNTER 2023-01-11 10:37 | Day surgery (SDC) | payer OTHER ==
[~2023-01-11 10:37] MED LIST: ACETAMINOPHEN 325 MG TABLET (FP) PO ONE; ZOLEDRONIC ACID/MAN/WATER 5 MG/100 ML INFUS..BTL IVPB ONE
[2023-01-11 14:00] VITALS: RESP 18; TEMP 97.9
[2023-01-11 14:02] VITALS: BP 163/65; PULSE 62
== END 2023-01-11 12:30 | disposition home or self-care (01) ==
LOC: JCHEMO 10:37 → J7W 10:41 → JCHEMO 12:30
PROVIDERS: ATTEND Family Medicine
PROC: 3E033GC Introduction of Other Therapeutic Substance into Peripheral Vein, Percutaneous Approach (ICD-10-PCS; principal; 2023-01-11)
DX: M81.0 Age-related osteoporosis without current pathological fracture (principal)
CPT/HCPCS: 96365; J3489